=== PATIENT | female | born 1960 | race Caucasian/White ===

== ENCOUNTER 2024-08-24 05:30 | Day surgery (SDC) | payer OTHER ==
[2024-08-18 09:21] VITALS: BP 118/76
[~2024-08-24] VITALS: Ht 167.6 cm; Wt 104.3 kg
[~2024-08-24 05:30] MED LIST: DOXYCYCLINE HY100 MG PO; LOSARTAN-HCTZ1 EACH PO; TENORMIN50 M1 PO; TYLENOL-CODEINE1 TAB PO; XANAX1 MG PO
[2024-08-24] MEDS ORDERED: CEFOXITIN SODIUM 2,000 MG VIAL IV ONE (09:15)
[2024-08-24] MEDS ORDERED: POVIDONE-IODINE 118 ML BOTT TOP ONE (09:15)
[2024-08-24] MEDS ORDERED: MORPHINE SULFATE 4 MG/ML VIAL IV PRN (09:45)
[2024-08-24] MEDS ORDERED: PROMETHAZINE HCL 50 MG/ML AMPUL IM ONE (09:45)
[2024-08-24] MEDS ORDERED: NAPR500T14 PO (09:47)
[2024-08-24] MEDS ORDERED: MORGIDOX100 MG PO (09:47)
== END 2024-08-24 12:50 | disposition home or self-care (01) ==
LOC: CIR.AMB 05:30
PROVIDERS: ATTEND Obstetrics & Gynecology
DX: D25.0 Submucous leiomyoma of uterus (principal); N85.02 Endometrial intraepithelial neoplasia [EIN]; N72 Inflammatory disease of cervix uteri

== ENCOUNTER 2024-10-13 07:15 | Inpatient (IN) | payer OTHER ==
[~2024-10-13] VITALS: Ht 167.6 cm; Wt 104.3 kg
[~2024-10-13 07:15] MED LIST changes: +MORGIDOX100 MG PO; +NAPR500T14 PO
[2024-10-13 08:41] VITALS: BP 130/83
[2024-10-13 08:42] VITALS: BP 126/73
[2024-10-19] MEDS ORDERED: CEFOXITIN SODIUM 2,000 MG VIAL IV SCH (09:00)
[2024-10-19] MEDS ORDERED: MEPERIDINE HCL/PF 50 MG/ML VIAL IV SCH (09:51)
[2024-10-19] MEDS ORDERED: RINGERS SOLUTION,LACTATED 1,000 ML IV SCH (10:00)
[2024-10-19] MEDS ORDERED: MORPHINE SULFATE 4 MG/ML VIAL IV ONE (10:40)
[2024-10-19] MEDS ORDERED: MEPERIDINE HCL 50 MG/ML AMPUL IV ONE (11:10)
[2024-10-19] MEDS ORDERED: PROMETHAZINE HCL 25 MG/ML AMPUL ONE (11:29)
[2024-10-19] MEDS ORDERED: PROMETHAZINE HCL 50 MG/ML AMPUL IV SCH (12:00)
[2024-10-19 12:57] LABS: HEMATOCRIT 45.7 % (36.0-45.00); HEMOGLOBIN 15.1 g/dL (12.0-15.00); MEAN CELL VOLUME 96.7 fL (80.00-100.00); MEAN CORPUSCULAR HEMOGLOBIN 31.9 pg (27.00-32.0); PLATELET COUNT 231 K/uL (150-450); RED BLOOD COUNT 4.73 M/uL (4.00-6.00); RED CELL DISTRIBUTION WIDTH 13.7 % (11.5-14.5)
[2024-10-19 13:36] VITALS: BP 126/73
[2024-10-19 15:26] VITALS: BP 121/71
[2024-10-19] MEDS ORDERED: SIMETHICONE 125 MG CAPSULE PO SCH (17:00)
[2024-10-20 00:28] VITALS: BP 150/80
[2024-10-20 04:00] VITALS: BP 125/73
[2024-10-20 08:02] VITALS: BP 140/81
[2024-10-20] MEDS ORDERED: ACETAMINOPHEN WITH CODEINE 1 UDTAB TABLET PO ONE (08:45)
[2024-10-20] MEDS ORDERED: Tylenol #3 PO (09:01)
[2024-10-20] MEDS ORDERED: NAPR500T14 PO (09:01)
== END 2024-10-20 09:15 | disposition home or self-care (01) | DRG 743 ==
LOC: O/R 10-19 09:14 → OB/GYN 10-19 10:54 → SURG 10-26 07:15
PROVIDERS: ADMIT Obstetrics & Gynecology; ATTEND Obstetrics & Gynecology
PROC: 0UT7FZZ Resection of Bilateral Fallopian Tubes, Via Natural or Artificial Opening With Percutaneous Endoscopic Assistance (ICD-10-PCS; 2024-10-19)
PROC: 0UT2FZZ Resection of Bilateral Ovaries, Via Natural or Artificial Opening With Percutaneous Endoscopic Assistance (ICD-10-PCS; 2024-10-19)
PROC: 0JQC0ZZ Repair Pelvic Region Subcutaneous Tissue and Fascia, Open Approach (ICD-10-PCS; 2024-10-19)
PROC: 0USG4ZZ Reposition Vagina, Percutaneous Endoscopic Approach (ICD-10-PCS; 2024-10-19)
PROC: 0TJB8ZZ Inspection of Bladder, Via Natural or Artificial Opening Endoscopic (ICD-10-PCS; 2024-10-19)
PROC: 0UT9FZZ Resection of Uterus, Via Natural or Artificial Opening With Percutaneous Endoscopic Assistance (ICD-10-PCS; principal; 2024-10-19 07:00)
DX: D25.9 Leiomyoma of uterus, unspecified (principal); N88.2 Stricture and stenosis of cervix uteri; N80.03 Adenomyosis of the uterus; N84.0 Polyp of corpus uteri; N81.11 Cystocele, midline; N95.0 Postmenopausal bleeding; N80.00 Endometriosis of the uterus, unspecified